=== PATIENT | female | born 1985 | race Two or more races ===

== ENCOUNTER 2018-07-08 09:37 | Inpatient (IN) | payer OTHER ==
[~2018-07-08] VITALS: Ht 165.1 cm; Wt 87.1 kg
[2018-07-30] MEDS ORDERED: PRENATAL TABLE1 EACH PO (15:44)
== END 2018-08-01 12:16 | disposition home or self-care (01) | DRG 807 ==
LOC: LDR 07-30 15:09 → OB/GYN 07-30 17:43
PROVIDERS: ADMIT Obstetrics & Gynecology Maternal & Fetal Medicine
PROC: 10E0XZZ Delivery of Products of Conception, External Approach (ICD-10-PCS; principal; 2018-07-30)
PROC: 0KQM0ZZ Repair Perineum Muscle, Open Approach (ICD-10-PCS; 2018-07-30)
PROC: 0W8NXZZ Division of Female Perineum, External Approach (ICD-10-PCS; 2018-07-30)
PROC: 4A1HXCZ Monitoring of Products of Conception, Cardiac Rate, External Approach (ICD-10-PCS; 2018-07-30)
DX: O70.1 Second degree perineal laceration during delivery (principal); Z37.0 Single live birth; Z3A.39 39 weeks gestation of pregnancy

== ENCOUNTER 2018-07-28 09:00 | Outpatient (CLI) | payer OTHER | END 2018-07-28 09:46 | disposition home or self-care (01) | LOC: NST 09:00 | DX: Z34.83 Encounter for supervision of other normal pregnancy, third trimester (principal) ==

== ENCOUNTER 2020-12-23 14:45 | Inpatient (IN) | payer OTHER ==
[~2020-12-23] VITALS: Ht 165.1 cm; Wt 87.1 kg
[~2020-12-23 14:45] MED LIST: PRENATAL TABLE1 EACH PO
== END 2021-01-07 13:14 | disposition home or self-care (01) | DRG 776 ==
LOC: LDR 01-05 02:55 → OB/GYN 01-05 04:31 → SURG-SUITE 01-05 14:04 → LDR 01-12 14:45
PROVIDERS: ADMIT Obstetrics & Gynecology Maternal & Fetal Medicine; ATTEND Obstetrics & Gynecology Maternal & Fetal Medicine
PROC: 0HQ9XZZ Repair Perineum Skin, External Approach (ICD-10-PCS; principal; 2021-01-05)
DX: O70.0 First degree perineal laceration during delivery (principal); Z20.822 Contact with and (suspected) exposure to COVID-19